=== PATIENT | female | born 1945 | race Caucasian/White ===

== ENCOUNTER 2022-02-28 15:08 | Emergency (ER) | payer MEDICARE, OTHER | END 2022-02-28 16:32 | disposition home or self-care (01) | LOC: MADERS 15:08 | DX: S93.401A Sprain of unspecified ligament of right ankle, initial encounter (principal); S50.01XA Contusion of right elbow, initial encounter; S00.83XA Contusion of other part of head, initial encounter; S00.93XA Contusion of unspecified part of head, initial encounter; R73.9 Hyperglycemia, unspecified; W18.30XA Fall on same level, unspecified, initial encounter | CPT/HCPCS: 36416; 70450; 70486; 72125 ==